=== PATIENT | male | born 1990 | race Caucasian/White ===

== ENCOUNTER 2019-12-23 22:00 | Emergency (ER) | payer OTHER ==
[~2019-12-23] VITALS: Ht 185.4 cm; Wt 96.0 kg
[2019-12-23 22:03] VITALS: BP 123/56
--- NOTE | 2019-12-23 22:14 | NUR ---
erp at pt's bedside for eval
[2019-12-23] MEDS ORDERED: NEOSPORIN OINT. PKT 1 PACKET ONE (22:17)
--- NOTE | 2019-12-23 22:23 | NUR ---
SHOP BLACKSMITH AT PT'S BEDSIDE TO CLEAN WOUND, APPLY BACITRACIN AND STERI STRIP
[2019-12-23] MEDS ORDERED: LIDOCAINE-MPF 1%, 2ML ONE (22:29)
[2019-12-23] MEDS ORDERED: LIDOCAINE-MPF 1%, 2ML INFIL ONE (22:30)
== END 2019-12-23 22:50 | disposition home or self-care (01) ==
LOC: ED 22:19
DX: S01.112A Laceration without foreign body of left eyelid and periocular area, initial encounter (principal); Y04.0XXA Assault by unarmed brawl or fight, initial encounter; Y93.89 Activity, other specified; Y92.69 Other specified industrial and construction area as the place of occurrence of the external cause; Y99.0 Civilian activity done for income or pay
CPT/HCPCS: 12051; 99284